=== PATIENT | male | born 1955 | race Caucasian/White ===

== ENCOUNTER 2016-11-28 06:57 | Day surgery (SDC) | payer OTHER ==
[~2016-11-28] VITALS: Ht 170.2 cm; Wt 79.1 kg
[2016-11-28 07:39] VITALS: BP 149/85; PULSE 60; RESP 18; Ht 170.2 cm; Wt 79.1 kg
[2016-11-28] MEDS ORDERED: RAMI2.5C36 PO (07:43)
[2016-11-28 08:08] LABS: BASOPHILS % 0.7 % (0.0-2.0); EOSINOPHILS # 0.1 10^3/ul (0.0-0.5); EOSINOPHILS % 3.4 % (0.0-7.0); HEMATOCRIT 41.3 % (42.0-52.0); HEMOGLOBIN 14.4 g/dl (14.0-18.0); LYMPHOCYTES # 1.3 10^3/ul (0.8-2.9); LYMPHOCYTES % 32.8 % (15.0-51.0); MEAN CORPUSCULAR HEMOGLOBIN 31.6 pg (29.0-33.0); MEAN CORPUSCULAR HGB CONC 34.9 g/dl (32.0-37.0); MEAN CORPUSCULAR VOLUME 90.6 fl (82.0-101.0); MEAN PLATELET VOLUME 9.1 fl (7.4-10.4); MONOCYTE # 0.3 10^3/ul (0.3-0.9); MONOCYTES % 8.3 % (0.0-11.0); NEUTROPHILS % 54.6 % (39.0-77.0); PLATELET COUNT 248 10^3/UL (140-415); RED BLOOD COUNT 4.56 10^6/ul (4.70-6.10); RED CELL DISTRIBUTION WIDTH 12.2 % (11.5-14.5); WHITE BLOOD COUNT 4.1 10^3/ul (4.8-10.8)
[2016-11-28 08:23] LABS: INR 0.93; PROTIME 12.5 Sec (12.2-14.2)
[2016-11-28 08:24] LABS: PARTIAL THROMBOPLASTIN TIME 31.5 Sec (25.0-35.0)
[2016-11-28 08:26] LABS: CHOL/HDL RATIO 5.7 RATIO
--- NOTE | 2016-11-28 08:30 | RADRPT ---
PROCEDURE: XR Chest. CLINICAL INDICATION: Preoperative TECHNIQUE: Single frontal view of the chest was obtained COMPARISON: None FINDINGS: The heart and mediastinum are within normal limits. The lungs are clear. There is no pleural effusion or pneumothorax. RPTAT: AA IMPRESSION: No acute disease. .Arian Goddard MD, Date Time Electronically viewed and signed by .Arian Goddard MD, on 11/28/2016 08:29 .S/
[2016-11-28] MEDS ORDERED: HEPARIN 1000 UNITS/ML 10 ML INJ ONE (08:39)
[2016-11-28] MEDS ORDERED: MIDAZOLAM 1 MG/ML 2 ML INJ ONE (08:39)
[2016-11-28] MEDS ORDERED: LIDOCAINE 1% (MDV) 20 ML INJ ONE (08:39)
[2016-11-28] MEDS ORDERED: FENTAnyl 50 MCG/ML VIAL ONE (08:39)
[2016-11-28] MEDS ORDERED: HEPARIN 1000 UNITS/NS (A-LINE) 1,000 ML ONE (08:39)
[2016-11-28 08:40] LABS: CREATININE 0.79 mg/dl (0.61-1.24); POTASSIUM 4.5 mmol/L (3.5-5.1)
[2016-11-28] MEDS ORDERED: VERAPAMIL 5 MG INJ ONE (08:40)
[2016-11-28] MEDS ORDERED: NITROGLYCERIN (IC) 100 MCG/ML INJ ONE (08:40)
[2016-11-28] MEDS ORDERED: SOD CHLORIDE 0.9% 1,000 ML IV SCH (09:50)
--- NOTE | 2016-11-28 09:50 | SIPON ---
Date/Time of Note Date/Time of Note DATE: 11/28/16 TIME: 09:49 Operative Report Preoperative Diagnosis 1.Abnl stress test 2.Pre-op Postoperative Diagnosis 1.non-obstructive cad Operation/Procedure Performed 1.[facility] 2.Moderate concious sedation Surgeon: QASIM RAMIREZ Anesthesia Type: moderate sedation Estimated Blood Loss: minimal Specimen: none Grafts/Implants: none Complications: no QASIM RAMIREZ Nov 28, 2016 09:50
[2016-11-28] MEDS ORDERED: AL HYDROX/MG HYDROX/SIMETH 30 ML CUP PO PRN (10:00)
[2016-11-28] MEDS ORDERED: ACETAMINOPHEN 325 MG TAB PO PRN (10:00)
[2016-11-28] MEDS ORDERED: ONDANSETRON 4 MG INJ IV PRN (10:00)
[2016-11-28] MEDS ORDERED: morphine 2 MG INJ IV PRN (10:00)
--- NOTE | 2016-11-28 11:06 | CARRPT ---
DATE OF PROCEDURE: 11/28/2016 TYPE OF PROCEDURE: 1. Left heart catheterization. 2. Coronary angiography. 3. Left ventriculogram. ATTENDING PHYSICIAN: Ronald Bassett M.D. REFERRING PHYSICIAN: Self-referred. INDICATION: Abnormal cardiac stress test, preoperative patient. TYPE OF ANESTHESIA: Conscious local. BRIEF HISTORY AND HOSPITAL COURSE: Mr. Young is a 61-year- old male with history of hypertension, who initially presented with complaints of shortness of breath, preoperative state. The patient subsequently underwent a cardiac stress test revealing positive ischemia. Due to these findings, patient referred for and presents today in order to undergo left heart catheterization to assess for possibility of significant obstructive coronary artery disease leading to symptoms of shortness of breath and subsequent positive stress test findings in a preoperative state. PROCEDURE: After informed consent was obtained, the patient was brought to [facility], where his right and left radial areas were prepped and draped in the usual sterile fashion. Two percent lidocaine was infused into the right radial area in order to achieve adequate local anesthesia. With modified Seldinger technique, the radial artery was cannulated, and a 6-Cypriot arterial sheath and a 6-Cypriot JL 3.5 catheter were used to catheterize the left main coronary os with contrast injection 1 mL. The left coronary artery was sustained with a JL 3.5 with a radial guidewire, and a JR4 was used to catheterize the right coronary artery os. Contrast injection was used for right coronary artery to sustain. A JR4 through the guidewire and a 6-Cypriot pigtail were passed down into the to the left ventricle. Left ventricular end- diastolic pressure was measured. Twenty mL of contrast were injected, opacifying the left ventricle and performing a left angiogram. Then pullback valve to assess for significant gradient, which there was not, and subsequently removed. Subsequent to this time, the patient's radial sheath was removed. A TR band was applied. This completed the procedure. There were no complications. FINDINGS: 1. Coronary angiography: Right coronary artery proximally is a 2.5-mm vessel, has no significant focal stenosis in its entirety. It is a nondominant vessel. The left main has a 4-mm stenosis. Circumflex proximally is a 3.5-mm vessel with no significant focal stenosis. It is a dominant circumflex, therefore, gives off a 2.5-mm PDA and a 2-mm posterolateral branch with no significant focal stenosis. There exists a ramus branch, a 2.5- mm vessel with no significant focal stenosis. The LAD proximally is a 3.5-mm vessel, and it has mild luminal irregularities in the mid portion at approximately 20 percent. The remainder of the LAD is free of significant focal stenosis, just reached the apex. There are 2 branching proximal diagonals, 2-mm vessels with no significant focal stenosis. 2. Left ventriculogram revealed a preserved left ventricular ejection fraction of 60 percent to 65 percent, left end-diastolic pressure of 23, left ventriculogram of 26, post left ventriculogram. No significant by gradient, 1+ mitral regurgitation. TOTAL FLUOROSCOPY TIME: 3.7 minutes. TOTAL CONTRAST: 100 mL IMPRESSION: 1. Very mild nonobstructive coronary artery disease. 2. Preserved left ventricular systolic function. 3. Elevated left heart filling pressures. 4. A 1+ mitral regurgitation. 5. No significant aortic stenosis by gradient. RECOMMENDATIONS: In light of procedure findings at this time: 1. Maximize medical management. 2. Aggressive 3. Patient will be [facility] postcatheterization team management with probable discharge later this afternoon. 4. At this time, patient has no cardiac contraindications to proceeding to an OR. Dictated By: Fly Blackmon /[email or web address] /Document#: [id number]
[2016-11-28 12:50] VITALS: BP 127/80; PULSE 58; RESP 20
--- NOTE | 2016-11-30 17:09 | RADRPT ---
Vent Rate: 57 bpm RR Interval: 0 msec [place] Interval: 152 msec QRS Duration: 108 msec QT Interval: 444 msec QTC Interval: 432 msec P-R-T [place]: 64 - -39 - 56 degrees Sinus bradycardia with sinus arrhythmia Left axis deviation Abnormal ECG Electronically Signed By: Ernesto Shen [id number]
== END 2016-11-28 14:15 | disposition home or self-care (01) ==
LOC: SDS 06:57
PROVIDERS: ATTEND Internal Medicine
DX: I25.10 Atherosclerotic heart disease of native coronary artery without angina pectoris (principal); R94.39 Abnormal result of other cardiovascular function study; I10 Essential (primary) hypertension
CPT/HCPCS: 71010; 80048; 80061; 85025; 85610; 85730; 93005; 93458; C1769; C1887; J1644; J2250; J3010; Z7610